=== PATIENT | male | born 1960 | race Caucasian/White ===

== ENCOUNTER 2019-05-26 08:37 | Day surgery (SDC) | payer OTHER ==
[2019-05-25 12:16] VITALS: BMI 28.9
[2019-05-26 09:00] VITALS: TEMP 98.1
[2019-05-26 12:48] VITALS: BP 114/79; PULSE 61
== END 2019-05-26 10:54 | disposition home or self-care (01) ==
LOC: JASU-ENDO 08:37
PROVIDERS: ATTEND Internal Medicine Gastroenterology
PROC: 0DJD8ZZ Inspection of Lower Intestinal Tract, Via Natural or Artificial Opening Endoscopic (ICD-10-PCS; principal; 2019-05-26 09:00)
DX: R19.5 Other fecal abnormalities (principal); K57.30 Diverticulosis of large intestine without perforation or abscess without bleeding; K64.8 Other hemorrhoids